=== PATIENT | male | born 1955 | race Caucasian/White ===

== ENCOUNTER 2024-02-02 15:30 | Emergency (ER) | payer OTHER ==
--- NOTE | 2024-02-02 15:51 | EDPHYS ---
Physician Documentation [facility] Name: Aman Gomes Age: 68 yrs Sex: Male : 1955 Arrival Date: 02/02/2024 Time: 15:30 Bed 12 Private MD: ED Physician Nino Claudio HPI: 02/01 16:09 This 68 yrs old Male presents to ER via Ambulatory with complaints of Medication Refill.rt 16:09 Patient with chronic hypertension presents to the ED requesting refill of his rt amlodipine. Has no symptoms currently. Has 1 pill left. States that he will establish care with a primary care this month. Denies other acute complaints, symptoms are mild in severity, no other aggravating or alleviating factors. Historical: - Allergies: 15:42 PENICILLINS; db - Home Meds: 15:42 amlodipine 10 mg tablet [Active]; Metformin Oral [Active]; Lisinopril Oral [Active]; db - PMHx: 15:42 Hypertensive disorder; Hypercholesterolemia; db - Immunization history:: Adult Immunizations unknown. - Infectious Disease History:: Denies. - Social history:: Smoking status: Patient denies any tobacco usage or history of. - Family history:: not pertinent. ROS: 16:09 Constitutional: Negative for fever, chills, and weight loss, Cardiovascular: Negative rt for chest pain, palpitations, and edema, Respiratory: Negative for shortness of breath, cough, wheezing, and pleuritic chest pain, Abdomen/GI: Negative for abdominal pain, nausea, vomiting, diarrhea, and constipation, MS/Extremity: Negative for injury and deformity, Skin: Negative for injury, rash, and discoloration, Neuro: Negative for headache, weakness, numbness, tingling, and seizure, Exam: 16:09 Constitutional: This is a well developed, well nourished patient who is awake, alert, rt and in no acute distress. Head/Face: Normocephalic, atraumatic. Chest/axilla: Normal chest wall appearance and motion. Nontender with no deformity. No lesions are appreciated. Cardiovascular: Regular rate and rhythm with a normal S1 and S2. No gallops, murmurs, or rubs. Normal PMI, no JVD. No pulse deficits. Respiratory: Lungs have equal breath sounds bilaterally, clear to auscultation and percussion. No rales, rhonchi or wheezes noted. No increased work of breathing, no retractions or nasal flaring. Abdomen/GI: Soft, non-tender, with normal bowel sounds. No distension or tympany. No guarding or rebound. No evidence of tenderness throughout. MS/ Extremity: Pulses equal, no cyanosis. Neurovascular intact. Full, normal range of motion. Neuro: Awake and alert, GCS 15, oriented to person, place, time, and situation. Cranial nerves II-XII grossly intact. Motor strength 5/5 in all extremities. Sensory grossly intact. Cerebellar exam normal. Normal gait. Vital Signs: 15:40 Pulse 99; Resp 16; Temp 98; Pulse Ox 100% ; Weight 106.59 kg; Height 6 ft. 4 in. ; Pain db 0/10; 16:00 BP 171 / 86; Pulse 95; Resp 16; Temp 97.9(TE); Pulse Ox 97% on R/A; tl4 15:40 Body Mass Index 28.60 (106.59 kg, 193.04 cm) db 15:40 Pain Scale: Adult db MDM: 15:43 Patient medically screened. rt 16:09 Data reviewed: vital signs, nurses notes. Test considered but Not performed: Other rt Details Patient has pre-existing asymptomatic hypertension, further workup is not indicated at this time.. Counseling: I had a detailed discussion with the patient and/or guardian regarding the historical points, exam findings, and any diagnostic results supporting the discharge/admit diagnosis, the presence of at least one elevated blood pressure reading (>120/80) during this emergency department visit, the need for outpatient follow up, to return to the emergency department if symptoms worsen or persist or if there are any questions or concerns that arise at home. Administered Medications: No medications were administered Disposition Summary: 02/02/24 15:50 Discharge Ordered Notes: Location: Home rt Problem: chronic rt Symptoms: are resolved rt Condition: Stable rt Diagnosis - Essential (primary) hypertension rt Followup: rt - With: Private Physician - When: 5 - 6 days - Reason: Discharge Instructions: - Discharge Summary Sheet rt - Hypertension, Adult rt Forms: - Medication Reconciliation Form rt - Antibiotic Education rt - Prescription Opioid Use rt - Patient Portal Instructions rt - Leadership Thank You Letter rt Prescriptions: - Norvasc 10 mg Oral Tablet - take 1 tablet ORAL route once daily; 30 tablet; Refills: 0, Product Selection rt Permitted Signatures: Bri Bolanos RN RN db Nino Claudio MD MD rt Corrections: (The following items were deleted from the chart) 15:45 15:42 Allergies: No Known Allergies; jses db
--- NOTE | 2024-02-02 15:51 | ER ---
Nurse's Notes [facility] Name: Aman Gomes Age: 68 yrs Sex: Male : 1955 Arrival Date: 02/02/2024 Time: 15:30 Bed 12 Private MD: Diagnosis: Essential (primary) hypertension Presentation: 02/01 15:40 Chief complaint: Patient states: ALMOST OUT OF AMLODIPINE MEDICATION. HAS ONE MORE db PILL. STATES NEEDS PCP REFERRAL AND MED REFILL. Coronavirus screen: Client denies travel out of the [place] in the last 14 days. At this time, the client does not indicate any symptoms associated with coronavirus-19. Ebola Screen: Patient negative for fever greater than or equal to 101.5 degrees Fahrenheit, and additional compatible Ebola Virus Disease symptoms Patient denies exposure to infectious person. Patient denies travel to an Ebola-affected area in the 21 days before illness onset. No symptoms or risks identified at this time. Initial Sepsis Screen: Does the patient meet any 2 criteria? No. Patient's initial sepsis screen is negative. Does the patient have a suspected source of infection? No. Patient's initial sepsis screen is negative. Risk Assessment: Do you want to hurt yourself or someone else? Patient reports no desire to harm self or others. Onset of symptoms was February 02, 2024. 15:40 Method Of Arrival: Ambulatory db 15:40 Acuity: JJ 5 db Triage Assessment: 15:42 General: Appears in no apparent distress. comfortable, Behavior is calm. Pain: Denies db pain. Historical: - Allergies: 15:42 PENICILLINS; db - Home Meds: 15:42 amlodipine 10 mg tablet [Active]; Metformin Oral [Active]; Lisinopril Oral [Active]; db - PMHx: 15:42 Hypertensive disorder; Hypercholesterolemia; db - Immunization history:: Adult Immunizations unknown. - Infectious Disease History:: Denies. - Social history:: Smoking status: Patient denies any tobacco usage or history of. - Family history:: not pertinent. Screenin:50 [facility] ED Fall Risk Assessment (Adult) History of falling in the last 3 months, tl4 including since admission No falls in past 3 months (0 pts) Confusion or Disorientation No (0 pts) Intoxicated or Sedated No (0 pts) Impaired Gait No (0 pts) Mobility Assist Device Used No (0 pt) Altered Elimination No (0 pt) Score/Fall Risk Level 0 - 2 = Low Risk Oriented to surroundings, Maintained a safe environment, Educated pt \T\ family on fall prevention, incl call for assistance when getting out of bed, Assessed \T\ reinforced patient's understanding of fall precautions. Abuse screen: Denies threats or abuse. Denies injuries from another. Nutritional screening: No deficits noted. Tuberculosis screening: No symptoms or risk factors identified. Assessment: 15:49 General: Appears in no apparent distress. Behavior is calm, cooperative. Pain: Denies tl4 pain. Neuro: Level of Consciousness is awake, alert, obeys commands, Oriented to person, place, time, situation, Moves all extremities. Full function Gait is steady, Speech is normal. Cardiovascular: Capillary refill < 3 seconds Patient's skin is warm and dry. Respiratory: Airway is patent Respiratory effort is even, unlabored, Respiratory pattern is regular, symmetrical, Breath sounds are clear bilaterally. GI: No deficits noted. No signs and/or symptoms were reported involving the gastrointestinal system. : No deficits noted. No signs and/or symptoms were reported regarding the genitourinary system. EENT: No deficits noted. No signs and/or symptoms were reported regarding the EENT system. Derm: No deficits noted. No signs and/or symptoms reported regarding the dermatologic system. Musculoskeletal: No deficits noted. No signs and/or symptoms reported regarding the musculoskeletal system. Vital Signs: 15:40 Pulse 99; Resp 16; Temp 98; Pulse Ox 100% ; Weight 106.59 kg; Height 6 ft. 4 in. ; Pain db 0/10; 16:00 BP 171 / 86; Pulse 95; Resp 16; Temp 97.9(TE); Pulse Ox 97% on R/A; tl4 15:40 Body Mass Index 28.60 (106.59 kg, 193.04 cm) db 15:40 Pain Scale: Adult db ED Course: 15:34 Patient arrived in ED. ra3 15:41 Nino Claudio MD is Attending Physician. rt 15:42 Triage completed. db 15:42 Arm band placed on Patient placed in an exam room. db 15:49 Dev Garibay, MARCELLUS is Primary Nurse. tl4 15:51 Patient has correct armband on for positive identification. Bed in low position. Call tl4 light in reach. Provided Education on: call vázquez. 15:51 No provider procedures requiring assistance completed. Patient did not have IV access tl4 during this emergency room visit. Administered Medications: No medications were administered Medication: 15:50 VIS not applicable for this client. tl4 Outcome: 15:50 Discharge ordered by MD. rt 16:00 Discharged to home ambulatory, tl4 16:00 Condition: stable 16:00 Discharge instructions given to patient, Instructed on discharge instructions, follow up and referral plans. medication usage, Demonstrated understanding of instructions, follow-up care, medications, Prescriptions given X 1, 16:01 Patient left the ED. tl4 Signatures: Bri Bolanos RN RN db Nino Claudio MD MD rt Dev Garibay RN RN tl4 Cherrie Hahn ra3 Corrections: (The following items were deleted from the chart) 15:45 15:42 Allergies: No Known Allergies; db db
[2024-02-02 16:22] VITALS: BP 171/86; TEMP 97.9; O2SAT 97
== END 2024-02-02 16:01 | disposition home or self-care (01) ==
LOC: ER 15:30
DX: I10 Essential (primary) hypertension (principal); Z76.0 Encounter for issue of repeat prescription
CPT/HCPCS: 99283

== ENCOUNTER 2024-03-06 14:41 | Emergency (ER) | payer OTHER ==
--- OUTSIDE RECORDS SUMMARY | 2024-03-06 14:44 | XMS REPORT | Continuity of Care Document ---
Author Name Unknown Address [address] [id number] [facility] thconnect Address [address] [place] [address] Care Team Providers Care Grades 7 And 8 Teacher Name Role Phone Pcp, Patient Does Not Have A Primary Care Physic janel Campaigns, Generic Provider Attending Clinician Unavailable ROSE RANDALL Attending Clinician Unavailable Rose Harper Attending Clinician [phone] Payers Payer Name Policy Type Policy Number Effective Date Expirati on Date Source Allergies, Adverse Reactions, Alerts Allergy Name Allergy Type Status Severity Reaction(s) Onset Date Inactive Date Treating Clinician Comments Source PENICILL IN DRUG INGREDI Active Rash 12-22 00:00: 00 [facility] Penicill in Propensi ty to adverse reaction s Active Rash 12-22 00:00: 00 [facility] Social History Social Habit Start Date Stop Date Quantity Comments Source Sexual orientation U [facility] Sex assigned at 1955 00:00:00 1955 00:00:00 [facility] Smoking Status Start Date Stop Date Source Tobacco smoking consumption unknown [facility] Medications Ordered Medication Name Filled Medication Name Start Date Stop Date Current Medication? Ordering Clinician Indication Dosage Frequency Signature (SIG) Comments Components Source lisinopriL 40 mg tablet 12-22 00:00: 00 01-22 04:59 :00 Yes [id number] 40mg Take 1 tablet by mouth in the morning for 30 days. [facility] amLODIPine 10 mg tablet 12-22 00:00: 00 01-22 04:59 :00 Yes [id number] 10mg Take 1 tablet by mouth in the morning for 30 days. [facility] metFORMIN 1,000 mg tablet 12-22 00:00: 00 01-22 04:59 :00 Yes [id number] 1000mg Take 1 tablet by mouth in the morning and 1 tablet in the evening. Do all this for 30 days. [facility] Vital Signs Vital Name Observation Time Observation Value Comments Vicente cole Systolic blood pressure 2023-12-23 18:30:00 148 mm[Hg] [facility] Diastolic blood pressure 2023-12-23 18:30:00 97 mm[Hg] [facility] Heart rate 2023-12-23 18:30:00 79 /min [facility] Respiratory rate 2023-12-23 18:30:00 26 /min [facility] Oxygen saturation in Arterial blood by Pulse oximetry 2023-12-23 18:30:00 100 /min [facility] Body temperature 2023-12-23 17:30:00 37 Ashley [facility] Body height 2023-12-23 17:30:[address] [facility] Body weight 2023-12-23 17:30:[address] [facility] BMI 2023-12-23 17:30:00 28.00 kg/m2 [facility] Encounters Start Date/Time End Date/Time Encounter Type Admission Type Attending Clinicians Care Facility Care Department Encounter ID Source 2023-12-31 00:00:00 2023-12-31 12:00:01 Letter (Out) Campaigns, Generic Provider [facility] [id number] [facility] 2023-12-23 12:37:00 2023-12-23 13:44:00 Emergency X ROSE RANDALL [facility] ERT [id number] [facility] 2023-12-23 12:37:00 2023-12-23 13:44:00 Emergency Rose Randall [facility] [id number] [facility] Notes Date/Time Note Provider Source 2023-12-23 13:43:44 Patient dc home follow up with clinic. Verbalized understanding. Mynor Vale RN [facility] 2023-12-23 13:00:00 No complaints or pain just wants med refill. [facility] 2023-12-23 12:30:00 Patient came in for medication refill, states he has no PCP. No other complaints. T [facility]
--- NOTE | 2024-03-06 14:48 | EDPHYS ---
Physician Documentation [facility] Name: Aman Gomes Age: 68 yrs Sex: Male : 1955 Arrival Date: 03/06/2024 Time: 14:41 Bed IW1 Private MD: ED Physician Nino Claudio HPI: 03/06 14:51 This 68 yrs old Male presents to ER via Ambulatory with complaints of dr5 Medication Refill. 14:51 The patient presents to the emergency department requesting refill(s) for: Norvasc, dr5 Lisinopril / Metformin. Pt denies any symptoms. Pt states he is still trying to get a PCP to manage his DM and HTN.. Historical: - Allergies: 14:49 PENICILLINS; iw - PMHx: 14:49 Hypercholesterolemia; Hypertensive disorder; iw - Immunization history:: Adult Immunizations up to date. - Infectious Disease History:: Denies. - Social history:: Smoking status: Patient denies any tobacco usage or history of. ROS: 14:51 Constitutional: as per hpi dr5 Exam: 14:51 Constitutional: This is a well developed, well nourished patient who is awake, alert, dr5 and in no acute distress. Head/Face: Normocephalic, atraumatic. Eyes: Pupils equal round and reactive to light, extra-ocular motions intact. Lids and lashes normal. Conjunctiva and sclera are non-icteric and not injected. Cornea within normal limits. Periorbital areas with no swelling, redness, or edema. Chest/axilla: Normal chest wall appearance and motion. Nontender with no deformity. No lesions are appreciated. Cardiovascular: Regular rate and rhythm with a normal S1 and S2. Normal PMI, no JVD. No pulse deficits. Respiratory: Lungs have equal breath sounds bilaterally, clear to auscultation. No rales, rhonchi or wheezes noted. No increased work of breathing, no retractions or nasal flaring. Abdomen/GI: Soft, non-tender, non-distended Skin: Warm, dry with normal turgor. Normal color with no rashes, no lesions, and no evidence of cellulitis. MS/ Extremity: Pulses equal, no cyanosis. Neurovascular intact. Full, normal range of motion. Vital Signs: 14:46 BP 148 / 93; Pulse 104; Resp 18; Temp 98(O); Pulse Ox 98% on R/A; Weight 101.15 kg; iw Height 6 ft. 4 in. ; Pain 0/10; 14:46 Body Mass Index 27.14 (101.15 kg, 193.04 cm) iw 14:46 Pain Scale: Adult iw MDM: 14:47 Patient medically screened. dr5 14:51 Data reviewed: vital signs, nurses notes. Care significantly affected by the following dr5 chronic conditions: Diabetes, Hypertension. Care significantly affected by the following Social Determinants of Health: Poor access to healthcare and/or lack of insurance, Poor access to transportation. Counseling: I had a detailed discussion with the patient and/or guardian regarding the historical points, exam findings, and any diagnostic results supporting the discharge/admit diagnosis, the presence of at least one elevated blood pressure reading (>120/80) during this emergency department visit, the need for outpatient follow up, for definitive care, a family practitioner. ED course: Refilled HTN and DM medication for a month. Recommended that he find a PCP to manage his chronic issues and blood work. Pt reports he started riding his bike for exercise to decrease his blood pressure. No symptoms at the time of discharge. BP stable.. Administered Medications: No medications were administered Disposition: 15:37 Co-signature as Attending Physician, Nino Claudio MD I reviewed the patient's care rt provided by the Advanced Practice Provider and agree with the diagnosis and treatment plan. Disposition Summary: 03/06/24 14:47 Discharge Ordered Notes: Location: Home dr5 Condition: Stable dr5 Diagnosis - Essential (primary) hypertension dr5 Followup: dr5 - With: Emergency Department - When: As needed - Reason: Worsening of condition Followup: dr5 - With: Private Physician - When: 2 - 3 days - Reason: Recheck today's complaints, Continuance of care, Re-evaluation by your physician Discharge Instructions: - Discharge Summary Sheet dr5 - Hypertension, Adult dr5 Forms: - Medication Reconciliation Form dr5 - Patient Portal Instructions dr5 - Leadership Thank You Letter dr5 Prescriptions: - Norvasc 10 mg Oral tablet - take 1 tablet ORAL route once daily for 30 days; 30 tablet; Refills: 0, Product dr5 Selection Permitted - Lisinopril 20 mg Oral tablet - take 2 tablet ORAL route once daily for 30 days; 60 tablet; Refills: 0, Product dr5 Selection Permitted - Metformin 1,000 mg Oral tablet - take 1 tablet ORAL route every 12 hours for 30 days with morning and evening dr5 meals; 60 tablet; Refills: 0, Product Selection Permitted Signatures: Cierra Augustin RN RN iw Nino Claudio MD MD rt Luis Fernando Hutchins, CROP SUPERVISOR-C CROP SUPERVISOR-Cdr5
--- NOTE | 2024-03-06 14:55 | ER ---
Nurse's Notes [facility] Name: Aman Gomes Age: 68 yrs Sex: Male : 1955 Arrival Date: 03/06/2024 Time: 14:41 Bed IW1 Private MD: Diagnosis: Essential (primary) hypertension Presentation: 03/06 14:46 Chief complaint: Patient states: needs refill on metformin and BP meds. Coronavirus iw screen: At this time, the client does not indicate any symptoms associated with coronavirus-19. Ebola Screen: No symptoms or risks identified at this time. Initial Sepsis Screen: Does the patient meet any 2 criteria? No. Patient's initial sepsis screen is negative. Does the patient have a suspected source of infection? No. Patient's initial sepsis screen is negative. Risk Assessment: Do you want to hurt yourself or someone else? Patient reports no desire to harm self or others. Onset of symptoms was March 06, 2024. 14:46 Method Of Arrival: Ambulatory iw 14:46 Acuity: JJ 4 iw Historical: - Allergies: 14:49 PENICILLINS; iw - PMHx: 14:49 Hypercholesterolemia; Hypertensive disorder; iw - Immunization history:: Adult Immunizations up to date. - Infectious Disease History:: Denies. - Social history:: Smoking status: Patient denies any tobacco usage or history of. Screenin:53 [facility] ED Fall Risk Assessment (Adult) History of falling in the last 3 months, iw including since admission No falls in past 3 months (0 pts) Confusion or Disorientation No (0 pts) Intoxicated or Sedated No (0 pts) Impaired Gait No (0 pts) Mobility Assist Device Used No (0 pt) Altered Elimination No (0 pt) Score/Fall Risk Level 0 - 2 = Low Risk Oriented to surroundings. Abuse screen: Denies threats or abuse. Nutritional screening: No deficits noted. Tuberculosis screening: No symptoms or risk factors identified. Assessment: 14:53 General: Appears in no apparent distress. Behavior is calm, cooperative. Pain: Denies iw pain. Neuro: Level of Consciousness is awake, alert, obeys commands, Oriented to person, place, time, situation, Moves all extremities. Full function. Cardiovascular: Denies chest pain, lightheadedness, palpitations, shortness of breath. Respiratory: Respiratory effort is even, unlabored, Respiratory pattern is regular, symmetrical, Denies shortness of breath labored breathing. GI: Abdomen is non-distended. Derm: Skin is normal. Musculoskeletal: Range of motion: intact in all extremities. Vital Signs: 14:46 BP 148 / 93; Pulse 104; Resp 18; Temp 98(O); Pulse Ox 98% on R/A; Weight 101.15 kg; iw Height 6 ft. 4 in. ; Pain 0/10; 14:46 Body Mass Index 27.14 (101.15 kg, 193.04 cm) iw 14:46 Pain Scale: Adult iw ED Course: 14:43 Patient arrived in ED. mr 14:44 Luis Fernando Hutchins [facility]C [facility] 14:44 Nino Claudio MD is Attending Physician. dr5 14:49 Triage completed. iw 14:51 Arm band placed on. iw 14:53 Cierra Augustin, RN is Primary Nurse. iw 14:54 Patient has correct armband on for positive identification. Provided Education on: need iw for PCP, return to ER for chest pain, palpitations, any other needs . 14:54 No provider procedures requiring assistance completed. Patient did not have IV access iw during this emergency room visit. Administered Medications: No medications were administered Medication: 14:53 VIS not applicable for this client. iw Outcome: 14:47 Discharge ordered by MD. dr5 14:54 Discharged to home ambulatory, iw 14:54 Condition: good 14:54 Discharge instructions given to patient, Instructed on discharge instructions, follow up and referral plans. medication usage, Demonstrated understanding of instructions, follow-up care, medications, Prescriptions given X 3, 14:55 Patient left the ED. iw Signatures: Carlee Cooper, Reg Reg mr Cierra Augustin, RN RN iw Luis Fernando Hutchins FNP-C MARINE OILER-Cdr5 Corrections: (The following items were deleted from the chart) 14:51 14:46 BP 148 / 93; Pulse 104bpm; Resp 18bpm; Pulse Ox 98% RA; Temp 98F Oral; iw iw
[2024-03-06 14:59] VITALS: BP 148/93; TEMP 98; O2SAT 98
== END 2024-03-06 14:55 | disposition home or self-care (01) ==
LOC: ER 14:41
DX: I10 Essential (primary) hypertension (principal)
CPT/HCPCS: 99283

== ENCOUNTER 2024-04-08 10:03 | Emergency (ER) | payer OTHER ==
--- OUTSIDE RECORDS SUMMARY | 2024-04-08 10:06 | XMS REPORT | Continuity of Care Document ---
Author Name Unknown Address [address] [facility] [address] [id number] [facility] thconnect Address [address] [facility] [address] [place] [address] Care Team Providers Care Video Technician Name Role Phone Pcp, Patient Does Not Have A Primary Care Physic janel Campaigns, Generic Provider Attending Clinician Unavailable ROSE RANDALL Attending Clinician Unavailable Rose Harper Attending Clinician [phone] Payers Payer Name Policy Type Policy Number Effective Date Expirati on Date Source Allergies, Adverse Reactions, Alerts Allergy Name Allergy Type Status Severity Reaction(s) Onset Date Inactive Date Treating Clinician Comments Source PENICILL IN DRUG INGREDI Active Rash 12-22 00:00: 00 [facility] Penicill in Propensi ty to adverse reaction s Active Rash 12-22 00:00: 00 [facility] Social History Social Habit Start Date Stop Date Quantity Comments Source Sexual orientation U [facility] Sex assigned at 1955 00:00:00 1955 00:00:00 [facility] Smoking Status Start Date Stop Date Source Tobacco smoking consumption unknown [facility] Medications Ordered Medication Name Filled Medication Name Start Date Stop Date Current Medication? Ordering Clinician Indication Dosage Frequency Signature (SIG) Comments Components Source lisinopriL 40 mg tablet 12-22 00:00: 00 01-22 04:59 :00 No [id number] 40mg Take 1 tablet by mouth in the morning for 30 days. [facility] amLODIPine 10 mg tablet 12-22 00:00: 00 01-22 04:59 :00 No [id number] 10mg Take 1 tablet by mouth in the morning for 30 days. [facility] metFORMIN 1,000 mg tablet 12-22 00:00: 00 01-22 04:59 :00 No [id number] 1000mg Take 1 tablet by mouth in the morning and 1 tablet in the evening. Do all this for 30 days. [facility] Vital Signs Vital Name Observation Time Observation Value Comments Vicente cole Systolic blood pressure 2023-12-23 18:30:00 148 mm[Hg] [facility] Diastolic blood pressure 2023-12-23 18:30:00 97 mm[Hg] [facility] Heart rate 2023-12-23 18:30:00 79 /min [facility] Respiratory rate 2023-12-23 18:30:00 26 /min [facility] Oxygen saturation in Arterial blood by Pulse oximetry 2023-12-23 18:30:00 100 /min [facility] Body temperature 2023-12-23 17:30:00 37 Ashley [facility] Body height 2023-12-23 17:30:[address] [facility] Body weight 2023-12-23 17:30:[address] [facility] BMI 2023-12-23 17:30:00 28.00 kg/m2 [facility] Encounters Start Date/Time End Date/Time Encounter Type Admission Type Attending Clinicians Care Facility Care Department Encounter ID Source 2023-12-31 00:00:00 2023-12-31 12:00:01 Letter (Out) Campaigns, Generic Provider [facility] [id number] [facility] 2023-12-23 12:37:00 2023-12-23 13:44:00 Emergency X ROSE RANDALL [facility] ERT [id number] [facility] 2023-12-23 12:37:00 2023-12-23 13:44:00 Emergency Rose Randall [facility] [id number] [facility] Notes Date/Time Note Provider Source 2023-12-23 13:43:44 Patient dc home follow up with clinic. Verbalized understanding. Mynor Vale RN [facility] 2023-12-23 13:00:00 No complaints or pain just wants med refill. [facility] 2023-12-23 12:30:00 Patient came in for medication refill, states he has no PCP. No other complaints. T [facility]
--- NOTE | 2024-04-08 10:57 | ER ---
Nurse's Notes [facility] Name: Aman Gomes Age: 68 yrs Sex: Male : 1955 Arrival Date: 04/08/2024 Time: 10:03 Bed 12 Private MD: Diagnosis: Essential (primary) hypertension;Encounter for medication refill Presentation: 04/08 10:22 Chief complaint: Patient states: Wants prescriptions for amlodipine, lisinopril, and ll1 metformin. Coronavirus screen: Client denies travel out of the [place] in the last 14 days. At this time, the client does not indicate any symptoms associated with coronavirus-19. Ebola Screen: Patient denies travel to an Ebola-affected area in the 21 days before illness onset. Initial Sepsis Screen: Does the patient meet any 2 criteria? No. Patient's initial sepsis screen is negative. Does the patient have a suspected source of infection? No. Patient's initial sepsis screen is negative. Risk Assessment: Do you want to hurt yourself or someone else? Patient reports no desire to harm self or others. Onset of symptoms was April 08, 2024. 10:22 Method Of Arrival: Ambulatory ll1 10:22 Acuity: JJ 5 ll1 Triage Assessment: 10:30 General: Appears in no apparent distress. Behavior is calm, cooperative, appropriate ll1 for age, needs prescriptions for refills of his normal meds. Pain: Denies pain. Neuro: No deficits noted. Historical: - Allergies: 10:21 PENICILLINS; ll1 - PMHx: 10:21 Hypercholesterolemia; Hypertensive disorder; ll1 - PSHx: 10:21 hernia repair (Hypertensive disorder); ll1 - Immunization history:: Adult Immunizations up to date. - Infectious Disease History:: Denies. - Social history:: Smoking status: Patient denies any tobacco usage or history of. - Family history:: not pertinent. - Hospitalizations: : No recent hospitalization is reported. Screenin:31 [facility] ED Fall Risk Assessment (Adult) History of falling in the last 3 months, ll1 including since admission No falls in past 3 months (0 pts) Confusion or Disorientation No (0 pts) Intoxicated or Sedated No (0 pts) Impaired Gait No (0 pts) Mobility Assist Device Used No (0 pt) Altered Elimination No (0 pt) Score/Fall Risk Level 0 - 2 = Low Risk Maintained a safe environment, Hourly rounding (assess needs \T\ fall precautionary measures) done. Abuse screen: Denies threats or abuse. Nutritional screening: No deficits noted. Tuberculosis screening: No symptoms or risk factors identified. Assessment: 11:02 General: Appears in no apparent distress. comfortable, Behavior is calm, cooperative. ss Pain: Denies pain. Neuro: Level of Consciousness is awake, alert, obeys commands, Oriented to person, place, time, situation. Respiratory: Airway is patent Respiratory effort is even, unlabored, Respiratory pattern is regular, symmetrical. Derm: Skin is pink, warm \T\ dry. normal. Vital Signs: 10:22 BP 140 / 85; Pulse 58; Resp 16; Pulse Ox 99% ; Pain 0/10; ll1 10:22 Pain Scale: Adult ll1 ED Course: 10:05 Patient arrived in ED. mr 10:07 Dakota Sargent MD is Attending Physician. rn 10:23 Triage completed. ll1 10:23 Arm band placed on Patient placed in an exam room, on a stretcher. ll1 10:30 Alea Young, MARCELLUS is Primary Nurse. ll1 10:31 Patient has correct armband on for positive identification. Provided Education on: ER ll1 procedures and process. Cardiac monitoring not applicable on this patient. 10:32 No provider procedures requiring assistance completed. Patient did not have IV access ll1 during this emergency room visit. Administered Medications: No medications were administered Medication: 10:31 VIS not applicable for this client. ll1 Outcome: 10:32 Discharged to home ambulatory, ll1 10:32 Condition: stable 10:32 Discharge instructions given to patient, Instructed on discharge instructions, follow up and referral plans. medication usage, Demonstrated understanding of instructions, follow-up care, medications, Prescriptions given X 3, 10:56 Discharge ordered by . rn 11:02 Patient left the ED. ss Signatures: Carlee Cooper, Reg Reg mr Dakota Sargent MD MD rn Blanchard, Shelby, RN RN ss Alea Young RN RN ll1
--- NOTE | 2024-04-08 10:57 | EDPHYS ---
Physician Documentation [facility] Name: Aman Gomes Age: 68 yrs Sex: Male : 1955 Arrival Date: 04/08/2024 Time: 10:03 Bed 12 Private MD: ED Physician Dakota Sargent HPI: 04/08 10:55 This 68 yrs old Male presents to ER via Ambulatory with complaints of Medication Refill.rn 10:55 The patient has experienced similar episodes in the past. 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 Has not been able to get in with the PCP. Otherwise denies any acute symptoms. Historical: - Allergies: 10:21 PENICILLINS; ll1 - PMHx: 10:21 Hypercholesterolemia; Hypertensive disorder; ll1 - PSHx: 10:21 hernia repair (Hypertensive disorder); ll1 - Immunization history:: Adult Immunizations up to date. - Infectious Disease History:: Denies. - Social history:: Smoking status: Patient denies any tobacco usage or history of. - Family history:: not pertinent. - Hospitalizations: : No recent hospitalization is reported. ROS: 10:55 Constitutional: Negative for fever, chills, and weight loss, Cardiovascular: Negative rn for chest pain, palpitations, and edema, Respiratory: Negative for shortness of breath, cough, wheezing, and pleuritic chest pain, Abdomen/GI: Negative for abdominal pain, nausea, vomiting, diarrhea, and constipation, MS/Extremity: Negative for injury and deformity, Neuro: Negative for headache, weakness, numbness, tingling, and seizure, Exam: 10:55 Constitutional: This is a well developed, well nourished patient who is awake, alert, rn and in no acute distress. Vital Signs: 10:22 BP 140 / 85; Pulse 58; Resp 16; Pulse Ox 99% ; Pain 0/10; ll1 10:22 Pain Scale: Adult ll1 MDM: 10:07 Medical Screening Exam initiated rn 10:55 Data reviewed: vital signs, nurses notes, and as a result, I will discharge patient. rn Counseling: I had a detailed discussion with the patient and/or guardian regarding the historical points, exam findings, and any diagnostic results supporting the discharge/admit diagnosis, the need for outpatient follow up, to return to the emergency department if symptoms worsen or persist or if there are any questions or concerns that arise at home. Special discussion: I discussed with the patient/guardian in detail that at this point there is no indication for admission to the hospital. It is understood, however, that if the symptoms persist or worsen the patient needs to return immediately for re-evaluation. Based on the history and exam findings, there is no indication for further emergent testing or inpatient evaluation. I discussed with the patient/guardian the need to see the primary care provider for further evaluation of the symptoms. Administered Medications: No medications were administered Disposition Summary: 04/08/24 10:56 Discharge Ordered Notes: Location: Home rn Problem: chronic rn Symptoms: are unchanged rn Condition: Stable rn Diagnosis - Essential (primary) hypertension rn - Encounter for medication refill rn Followup: rn - With: Private Physician - When: As needed - Reason: Recheck today's complaints, Re-evaluation by your physician Discharge Instructions: - Discharge Summary Sheet rn - Hypertension, Adult rn - Managing Your Hypertension rn Forms: - Medication Reconciliation Form rn - Antibiotic discharge rn - Prescription Opioid Use rn - Patient Portal Instructions rn - Leadership Thank You Letter rn - Work release form ll1 Prescriptions: - amlodipine 10 mg Oral tablet - take 1 tablet ORAL route daily; 60 tablet; Refills: 0, Product Selection rn Permitted - Lisinopril 20 mg Oral tablet - take 2 tablet ORAL route once daily; 120 tablet; Refills: 0, Product Selection rn Permitted - Metformin 1,000 mg Oral tablet - take 1 tablet ORAL route every 12 hours with morning and evening meals; 120 rn tablet; Refills: 0, Product Selection Permitted Signatures: Dakota Sargent MD MD rn Lewis, Lynsay, RN RN ll1
[2024-04-08 11:07] VITALS: BP 140/85; O2SAT 99
== END 2024-04-08 11:02 | disposition home or self-care (01) ==
LOC: ER 10:03
DX: Z76.0 Encounter for issue of repeat prescription (principal); I10 Essential (primary) hypertension
CPT/HCPCS: 99283

== ENCOUNTER 2024-04-25 09:32 | Emergency (ER) | payer OTHER ==
--- OUTSIDE RECORDS SUMMARY | 2024-04-25 09:34 | XMS REPORT | Continuity of Care Document ---
Author Name Unknown Address [address] [facility] [address] [id number] [facility] thconnect Address [address] [facility] [address] [place] [address] Care Team Providers Care Journeyman Wireman Name Role Phone Pcp, Patient Does Not Have A Primary Care Physic janel Campaigns, Generic Provider Attending Clinician Unavailable ROSE RANDALL Attending Clinician Unavailable Rose Harper Attending Clinician Payers Payer Name Policy Type Policy Number Effective Date Expirati on Date Source Allergies, Adverse Reactions, Alerts Allergy Name Allergy Type Status Severity Reaction(s) Onset Date Inactive Date Treating Clinician Comments Source PENICILL IN DRUG INGREDI Active Rash 12-22 00:00: 00 [facility] Penicill in Propensi ty to adverse reaction s Active Rash 12-22 00:00: 00 [facility] Social History Social Habit Start Date Stop Date Quantity Comments Source Sexual orientation U [facility] Sex assigned at 1955 00:00:00 1955 00:00:00 [facility] Smoking Status Start Date Stop Date Source Tobacco smoking consumption unknown [facility] Medications Ordered Medication Name Filled Medication Name Start Date Stop Date Current Medication? Ordering Clinician Indication Dosage Frequency Signature (SIG) Comments Components Source lisinopriL 40 mg tablet 12-22 00:00: 00 01-22 04:59 :00 No [id number] 40mg Take 1 tablet by mouth in the morning for 30 days. [facility] amLODIPine 10 mg tablet 12-22 00:00: 00 01-22 04:59 :00 No [id number] 10mg Take 1 tablet by mouth in the morning for 30 days. [facility] metFORMIN 1,000 mg tablet 12-22 00:00: 00 01-22 04:59 :00 No [id number] 1000mg Take 1 tablet by mouth in the morning and 1 tablet in the evening. Do all this for 30 days. [facility] Vital Signs Vital Name Observation Time Observation Value Comments Vicente cole Systolic blood pressure 2023-12-23 18:30:00 148 mm[Hg] [facility] Diastolic blood pressure 2023-12-23 18:30:00 97 mm[Hg] [facility] Heart rate 2023-12-23 18:30:00 79 /min [facility] Respiratory rate 2023-12-23 18:30:00 26 /min [facility] Oxygen saturation in Arterial blood by Pulse oximetry 2023-12-23 18:30:00 100 /min [facility] Body temperature 2023-12-23 17:30:00 37 Ashley [facility] Body height 2023-12-23 17:30:00 193 cm [facility] Body weight 2023-12-23 17:30:00 104.327 kg [facility] BMI 2023-12-23 17:30:00 28.00 kg/m2 [facility] Encounters Start Date/Time End Date/Time Encounter Type Admission Type Attending Clinicians Care Facility Care Department Encounter ID Source 2023-12-31 00:00:00 2023-12-31 12:00:01 Letter (Out) Campaigns, Generic Provider [facility] [id number] [facility] 2023-12-23 12:37:00 2023-12-23 13:44:00 Emergency X ROSE RANDALL [facility] ERT [id number] [facility] 2023-12-23 12:37:00 2023-12-23 13:44:00 Emergency Rose Randall [facility] [id number] [id number] [facility] Notes Date/Time Note Provider Source 2023-12-23 13:43:44 Patient dc home follow up with clinic. Verbalized understanding. Mynor Vale RN [facility] 2023-12-23 13:00:00 No complaints or pain just wants med refill. [facility] 2023-12-23 12:30:00 Patient came in for medication refill, states he has no PCP. No other complaints. T [facility]
[2024-04-25 11:14] LABS: SARS-CoV-2 Antigen CONTROL BLUE LINE VIS/BG OK; SARS-CoV-2 Antigen Rapid Res Negative (Negative)
[2024-04-25] MEDS ORDERED: NA CHLORIDE 0.9% 500 ML ONE (11:34)
[2024-04-25 11:51] LABS: Absolute Basophils 0.1 K/uL (0-0.5); Absolute Eosinophils 0.2 K/uL (0-0.5); Absolute Lymphocytes (CBC) 1.4 K/uL (0.7-4.9); Absolute Monocytes 0.9 K/uL (0.1-1.3); Absolute Neutrophil 5.2 K/uL (1.8-8.0); Basophils % 0.9 % (0-1.3); Eosinophils % 2.9 % (0-4.4); Hematocrit 37.1 % (39.6-49.0); Hemoglobin 13.1 g/dL (13.6-17.9); Lymphocytes % 17.7 % (15.3-44.8); MCH 31.8 pg (27.0-35.0); MCHC 35.2 g/dL (32.0-36.0); MCV 90.3 fL (80-100); MPV 8.3 fL (7.6-11.3); Neutrophils % 67.5 % (41.7-73.7); Platelets 239 thou/uL (152-406); RBC Red Blood Cell Count 4.11 M/uL (4.33-5.43); Red Cell Distribution Width 12.6 % (12.1-15.2)
[2024-04-25 12:05] LABS: Anion Gap 10.2 mEq/L (5.0-15.0); Potassium 4.2 mEq/L (3.5-5.1)
--- NOTE | 2024-04-25 12:54 | RAD REPORT ---
EXAM: Soft Tissue Neck W/Contr INDICATION: R anterior neck swelling Sagittal and coronal reformations were generated. This exam was performed according to our department al dose-optimization program, which includes automated exposure control, adjustment of the mA and/or kV according to patient size and/or use of iterative reconstruction technique. IV contrast was administered. COMPARISON: None. FINDINGS: Mucosal spaces: Nasopharynx, oropharynx, oral cavity, larynx and hypopharynx are normal. No suspiciou s masses are identified. Epiglottis is normal in configuration. True vocal cords cords are normally situated. Piriform sinuses are well-aerated. Lymph Nodes: In the right anterior submandibular location the site of palpable concern 19 mm necrotic lymph node is suspected. No additional areas of abnormal lymphadenopathy seen. Salivary Glands: Unremarkable. Thyroid Gland: Normal Included Intracranial Structures: Grossly unremarkable. Included Orbits: Normal Paranasal Sinuses: Predominantly clear Tympanomastoid Cavities: Normal Vascular Structures: Normal Osseous Structures: No acute osseous abnormality. Included Lung Apices: Normal IMPRESSION: In the right anterior submandibular location, 19 mm necrotic lymph node is suspected. This correlates with palpable abnormality. Recommend nonemergent follow-up ultrasound guided FNA.
--- NOTE | 2024-04-25 13:00 | EDPHYS ---
Physician Documentation [facility] Name: Aman Gomes Age: 68 yrs Sex: Male : 1955 Arrival Date: 04/25/2024 Time: 09:32 Bed 12 Private MD: ED Physician Asael Camargo HPI: 04/25 10:59 This 68 yrs old Male presents to ER via Ambulatory with complaints of Sore ec2 Throat - with lump x2wks. 10:59 Patient arrives today for neck swelling to the right anterior neck. Reports been unwell ec2 for several days and progressively worsening. Patient reports has been having a sore throat as well. No vomiting, no diarrhea. No issues with p.o. intake. Reports odynophagia however no issues with secretions.. Historical: - Allergies: 10:01 PENICILLINS; hb - PMHx: 10:01 Hypercholesterolemia; Hypertensive disorder; hb - PSHx: 10:01 hernia repair (en); hb - Immunization history:: Adult Immunizations up to date. - Infectious Disease History:: Denies. - Social history:: Smoking status: Patient denies any tobacco usage or history of. ROS: 10:59 Constitutional: as per hpi ec2 Exam: 10:59 Constitutional: GEN: NAD Head: atraumatic Eyes: EOMI Ears: External ears are normal. ec2 Mouth: No trismus, no issues with secretions, posterior pharyngeal erythema without exudate appreciated. Neck: Right anterior cervical lymphadenopathy noted. CV: regular rate LUNGS: no respiratory distress ABD: non-distended SKIN: no evidence of rashes MSK: no evidence of trauma Vital Signs: 10:00 BP 146 / 102; Pulse 107; Resp 16; Temp 98.4; Pulse Ox 100% on R/A; Weight 104.33 kg; hb Height 6 ft. 4 in. ; Pain 2/10; 10:00 Body Mass Index 28.00 (104.33 kg, 193.04 cm) hb 10:00 Pain Scale: Adult hb MDM: 10:06 Medical Screening Exam initiated ec2 10:59 Data reviewed: vital signs, nurses notes. ED course: Patient arrives today for sore ec2 throat as well as right anterior neck swelling. Examination revealing for HEENT findings as above. Will obtain viral swab and strep swab. . 11:32 ED course: Negative swabs, will obtain lab work and further imaging of the neck to ec2 evaluate for mass. 12:59 ED course: CT imaging shows concern for necrotic lymph node. I will start the patient ec2 on antibiotics, prescribed pain medications have a follow-up with primary care for repeat evaluation and possible ultrasonography. Return precautions given.. 04/25 10:10 Order name: Influenza Screen (a \T\ B); Complete Time: 11:32 ec2 04/25 10:10 Order name: SARS RAPID; Complete Time: 11:32 ec2 04/25 10:10 Order name: Strep ec2 04/25 11:18 Order name: Throat Culture EDMS 04/25 11:32 Order name: CBC with Diff; Complete Time: 12:31 ec2 04/25 11:32 Order name: BMP; Complete Time: 12:31 ec2 04/25 11:32 Order name: Soft Tissue Neck W/Contr CT; Complete Time: 12:59 ec2 Administered Medications: 11:46 Drug: NS 0.9% IV 500 ml 500 ml IV at 1 bolus once; to be given as a bolus over 30 hb minutes Volume: 500 ml; Route: IV; Rate: 1 bolus; Site: right antecubital; 12:15 Follow up: Response: No adverse reaction; IV Status: Completed infusion; IV Intake: hb 500ml Disposition Summary: 04/25/24 13:00 Discharge Ordered Notes: Location: Home ec2 Condition: Stable ec2 Diagnosis - Necrotic Lymph Node ec2 Followup: ec2 - With: Whit Ingram MD - When: - Reason: Recheck today's complaints Discharge Instructions: - Discharge Summary Sheet ec2 - Lymphangitis, Adult ec2 Forms: - Medication Reconciliation Form ec2 - Antibiotic Education ec2 - Prescription Opioid Use ec2 - Patient Portal Instructions ec2 - Leadership Thank You Letter ec2 Prescriptions: - acetaminophen-codeine 300-30 mg Oral tablet - take 1 tablet ORAL route 4 times per day; 16 tablet; Refills: 0, Product ec2 Selection Permitted - Bactrim DS 800-160 mg Oral Tablet - take 1 tablet ORAL route every 12 hours for 7 days; 14 tablet; Refills: 0, ec2 Product Selection Permitted Signatures: Dispatcher [employer] Bekah May RN RN Asael Camargo MD MD ec2 Corrections: (The following items were deleted from the chart) : 11:32 CBC+H.LAB.BRZ ordered. EDMS EDMS : 11:32 BASIC METABOLIC PANEL+C.LAB.BRZ ordered. EDMS EDMS
--- NOTE | 2024-04-25 13:00 | ER ---
Nurse's Notes [facility] Name: Aman Gomes Age: 68 yrs Sex: Male : 1955 Arrival Date: 04/25/2024 Time: 09:32 Bed 12 Private MD: Diagnosis: Necrotic Lymph Node Presentation: 04/25 10:00 Chief complaint: Lump on neck x 1 week, cough and congestion x 3-4 days. Coronavirus hb screen: At this time, the client does not indicate any symptoms associated with coronavirus-19. Ebola Screen: No symptoms or risks identified at this time. Initial Sepsis Screen: Does the patient meet any 2 criteria? No. Patient's initial sepsis screen is negative. Does the patient have a suspected source of infection? No. Patient's initial sepsis screen is negative. Risk Assessment: Do you want to hurt yourself or someone else? Patient reports no desire to harm self or others. Onset of symptoms was April 19, 2024. 10:00 Method Of Arrival: Ambulatory hb 10:00 Acuity: JJ 4 hb Historical: - Allergies: 10:01 PENICILLINS; hb - PMHx: 10:01 Hypercholesterolemia; Hypertensive disorder; hb - PSHx: 10:01 hernia repair (en); hb - Immunization history:: Adult Immunizations up to date. - Infectious Disease History:: Denies. - Social history:: Smoking status: Patient denies any tobacco usage or history of. Screenin:21 [facility] ED Fall Risk Assessment (Adult) History of falling in the last 3 months, hb including since admission No falls in past 3 months (0 pts) Confusion or Disorientation No (0 pts) Intoxicated or Sedated No (0 pts) Impaired Gait No (0 pts) Mobility Assist Device Used No (0 pt) Altered Elimination No (0 pt) Score/Fall Risk Level 0 - 2 = Low Risk Oriented to surroundings, Maintained a safe environment, Educated pt \T\ family on fall prevention, incl call for assistance when getting out of bed. Abuse screen: Denies threats or abuse. Denies injuries from another. Nutritional screening: No deficits noted. Tuberculosis screening: No symptoms or risk factors identified. Assessment: 11:20 General: Appears in no apparent distress. Behavior is calm, cooperative. Pain: Pain hb currently is 2 out of 10 on a pain scale. Neuro: GCS 15. Cardiovascular: Patient's skin is warm and dry. Respiratory: Respiratory effort is even, unlabored, Respiratory pattern is regular, symmetrical. EENT: Reports sore throat, lump on right neck. 13:00 Reassessment: Patient appears in no apparent distress at this time. Patient and/or hb family updated on plan of care and expected duration. Pain level reassessed. Patient is alert, oriented x 3, equal unlabored respirations, skin warm/dry/pink. Vital Signs: 10:00 BP 146 / 102; Pulse 107; Resp 16; Temp 98.4; Pulse Ox 100% on R/A; Weight 104.33 kg; hb Height 6 ft. 4 in. ; Pain 2/10; 10:00 Body Mass Index 28.00 (104.33 kg, 193.04 cm) hb 10:00 Pain Scale: Adult hb ED Course: 09:34 Patient arrived in ED. ra3 09:36 Asael Camargo MD is Attending Physician. ec2 10:00 Arm band placed on. hb 10:01 Triage completed. hb 10:38 Strep Sent. hb 10:38 SARS RAPID Sent. hb 10:38 Influenza Screen (a \T\ B) Sent. hb 10:38 COVID swab sent to lab. Flu and/or RSV swab sent to lab. Strep swab sent to lab. hb 10:45 Patient has correct armband on for positive identification. Provided Education on: hb tests, result times. 11:20 Bekah Norton, RN is Primary Nurse. hb 11:47 BMP Sent. hb 11:47 CBC with Diff Sent. hb 11:47 Initial lab(s) drawn, by de, sent to lab. Inserted saline lock: 20 gauge in right hb antecubital area, using aseptic technique. Blood collected. Flushed with 10 mL NS. 12:35 Soft Tissue Neck W/Contr CT In Process Unspecified. EDMS 13:00 Whit Ingram MD is Referral Physician. ec2 13:12 No provider procedures requiring assistance completed. IV discontinued, intact, hb bleeding controlled, No redness/swelling at site. Pressure dressing applied. Administered Medications: 11:46 Drug: NS 0.9% IV 500 ml 500 ml IV at 1 bolus once; to be given as a bolus over 30 hb minutes Volume: 500 ml; Route: IV; Rate: 1 bolus; Site: right antecubital; 12:15 Follow up: Response: No adverse reaction; IV Status: Completed infusion; IV Intake: hb 500ml Medication: 11:21 VIS not applicable for this client. hb Intake: 12:15 IV: 500ml; Total: 500ml. hb Outcome: 13:00 Discharge ordered by . ec2 13:12 Discharged to home ambulatory, hb 13:12 Condition: stable 13:12 Discharge instructions given to patient, Instructed on discharge instructions, follow up and referral plans. medication usage, Demonstrated understanding of instructions, follow-up care, medications, Prescriptions given X 2, 13:14 Patient left the ED. hb Signatures: Dispatcher [employer] EDBekah Benoit RN RN Asael Camargo MD MD ec2 Cherrie Hahn ra3 Corrections: (The following items were deleted from the chart) 10:02 10:00 Acuity: JJ 3 hb hb
[2024-04-25 13:39] VITALS: BP 146/102; TEMP 98.4; O2SAT 100
== END 2024-04-25 13:14 | disposition home or self-care (01) ==
LOC: ER 09:32
DX: I89.8 Other specified noninfective disorders of lymphatic vessels and lymph nodes (principal); Z11.52 Encounter for screening for COVID-19
CPT/HCPCS: 87070; 85025; 80048; 36415; 87081; 87804 ×2; 70491; 99284; 87811; Q9967; J7040

== ENCOUNTER 2024-06-14 12:33 | Emergency (ER) | payer OTHER ==
--- OUTSIDE RECORDS SUMMARY | 2024-06-14 12:35 | XMS REPORT | Continuity of Care Document ---
Author Name Unknown Address [address] [facility] [place] [address] [facility] thconnect Address [address] [facility] [address] [place] [address] Care Team Providers Care Harbormaster Name Role Phone Pcp, Patient Does Not Have A Primary Care Physic janel Campaigns, Generic Provider Attending Clinician Unavailable ROSE RANDALL Attending Clinician Unavailable Rose Harper Attending Clinician [phone] Payers Payer Name Policy Type Policy Number Effective Date Expirati on Date Source Allergies, Adverse Reactions, Alerts Allergy Name Allergy Type Status Severity Reaction(s) Onset Date Inactive Date Treating Clinician Comments Source PENICILL IN DRUG INGREDI Active Rash 12-22 00:00: 00 [facility] Penicill in Propensi ty to adverse reaction s Active Rash 12-22 00:00: 00 [facility] Social History Social Habit Start Date Stop Date Quantity Comments [facility] 1955 00:[facility]:00 1955 00:00:00 [facility] Smoking Status Start Date Stop Date Source Tobacco smoking consumption unknown [facility] Medications Ordered Medication Name Filled Medication Name Start Date Stop Date Current Medication? Ordering Clinician Indication Dosage Frequency Signature (SIG) Comments Components Source lisinopriL 40 mg tablet 12-22 00:00: 00 01-22 04:59 :00 No [id number] 40mg Take 1 tablet by mouth in the morning for 30 days. [facility] amLODIPine 10 mg tablet 12-22 00:00: 00 01-22 04:59 :00 No [id number] 10mg Take 1 tablet by mouth in the morning for 30 days. [facility] metFORMIN 1,000 mg tablet 12-22 00:00: 00 01-22 04:59 :00 No [id number] 1000mg Take 1 tablet by mouth in the morning and 1 tablet in the evening. Do all this for 30 days. [facility] Vital Signs Vital Name Observation Time Observation Value Comments Vicente cole Systolic blood pressure 2023-12-23 18:30:00 148 mm[Hg] [facility] Diastolic blood pressure 2023-12-23 18:30:00 97 mm[Hg] [facility] Heart rate 2023-12-23 18:30:00 79 /min [facility] Respiratory rate 2023-12-23 18:30:00 26 /min [facility] Oxygen saturation in Arterial blood by Pulse oximetry 2023-12-23 18:30:00 100 /min [facility] Body temperature 2023-12-23 17:30:00 37 [facility] Body height 2023-12-23 17:30:00 193 cm [facility] Body weight 2023-12-23 17:30:00 104.327 kg [facility] BMI 2023-12-23 17:30:00 28.00 kg/m2 [facility] Encounters Start Date/Time End Date/Time Encounter Type Admission Type Attending Clinicians Care Facility Care Department Encounter ID Source 2023-12-31 00:00:00 2023-12-31 12:00:01 Letter (Out) Campaigns, Generic Provider [facility] [id number] [facility] 2023-12-23 12:37:00 2023-12-23 13:44:00 Emergency X ROSE RANDALL [facility] ERT [id number] [facility] 2023-12-23 12:37:00 2023-12-23 13:44:00 Emergency Rose Randall [facility] [id number] [facility]
--- NOTE | 2024-06-14 13:16 | ER ---
Nurse's Notes [facility] Name: Aman Gomes Age: 68 yrs Sex: Male : 1955 Arrival Date: 06/14/2024 Time: 12:33 Bed IW3 Private MD: Diagnosis: Encounter for medication refill Presentation: 06/14 12:55 Chief complaint: Patient states: Here for medication refill. Pt states that he needs cm10 his Metformin, Lisinopril and Amlodipine refilled. No other complaints. Pt states that he ran out of medication today. Coronavirus screen: Client denies travel out of the [place] in the last 14 days. Ebola Screen: Patient denies travel to an Ebola-affected area in the 21 days before illness onset. Initial Sepsis Screen: Does the patient meet any 2 criteria? No. Patient's initial sepsis screen is negative. Does the patient have a suspected source of infection? No. Patient's initial sepsis screen is negative. Risk Assessment: Do you want to hurt yourself or someone else? Patient reports no desire to harm self or others. Onset of symptoms was June 14, 2024. 12:55 Method Of Arrival: Ambulatory cm10 12:55 Acuity: JJ 5 cm10 Triage Assessment: 12:58 General: Appears in no apparent distress. comfortable, Behavior is calm, cooperative. cm10 Pain: Denies pain. Neuro: No deficits noted. Level of Consciousness is awake, alert, obeys commands, Oriented to person, place, time, situation, Appropriate for age. Respiratory: No deficits noted. Airway is patent Respiratory effort is even, unlabored, Respiratory pattern is regular, symmetrical. Derm: No deficits noted. Skin is healthy with good turgor. Musculoskeletal: Range of motion: intact in all extremities. Historical: - Allergies: 12:57 PENICILLINS; cm10 - Home Meds: 12:57 amlodipine 10 mg tablet 1 tab daily [Active]; metformin 1,000 mg oral tablet 1 tab 2 cm10 times per day [Active]; lisinopril 40 mg oral tablet 1 tab daily [Active]; - PMHx: 12:57 Hypercholesterolemia; Hypertensive disorder; cm10 - PSHx: 12:57 hernia repair; cm10 - Immunization history:: Adult Immunizations up to date. - Infectious Disease History:: Denies. - Social history:: Smoking status: unknown. - Family history:: not pertinent. - Hospitalizations: : No recent hospitalization is reported. Screenin:59 [facility] ED Fall Risk Assessment (Adult) History of falling in the last 3 months, cm10 including since admission No falls in past 3 months (0 pts) Confusion or Disorientation No (0 pts) Intoxicated or Sedated No (0 pts) Impaired Gait No (0 pts) Mobility Assist Device Used No (0 pt) Altered Elimination No (0 pt) Score/Fall Risk Level 0 - 2 = Low Risk Oriented to surroundings, Maintained a safe environment, Hourly rounding (assess needs \T\ fall precautionary measures) done. Abuse screen: Denies threats or abuse. Denies injuries from another. Nutritional screening: No deficits noted. Tuberculosis screening: No symptoms or risk factors identified. Assessment: 13:00 General: See triage assessment.. cm10 Vital Signs: 12:55 BP 154 / 95; Pulse 53; Resp 15; Temp 98(TE); Pulse Ox 98% on R/A; Weight 106.59 kg; cm10 Height 6 ft. 4 in. ; Pain 0/10; 12:55 Body Mass Index 28.60 (106.59 kg, 193.04 cm) cm10 12:55 Pain Scale: Adult cm10 ED Course: 12:37 Patient arrived in ED. sj2 12:38 Dakota Sargent MD is Attending Physician. rn 12:57 Triage completed. cm10 12:59 Arm band placed on right wrist. Patient placed in waiting room. cm10 12:59 Patient has correct armband on for positive identification. Provided Education on: ER cm10 process and procedures.. Cardiac monitoring not applicable on this patient. 12:59 No provider procedures requiring assistance completed. Patient did not have IV access cm10 during this emergency room visit. 13:32 Cierra Augustin, RN is Primary Nurse. iw Administered Medications: No medications were administered Medication: 12:59 VIS not applicable for this client. cm10 Outcome: 12:59 Discharged to home ambulatory, cm10 12:59 Condition: good 12:59 Discharge instructions given to patient, Instructed on discharge instructions, follow up and referral plans. medication usage, Demonstrated understanding of instructions, follow-up care, medications, Prescriptions given X 3, 13:15 Discharge ordered by MD. rn 13:32 Patient left the ED. iw Signatures: Cierra Augustin RN RN iw Nieto, Roman, MD MD rn Martinez, Clarissa, RN RN [facility] Mey Cisse Juan M
--- NOTE | 2024-06-14 13:16 | EDPHYS ---
Physician Documentation [facility] Name: Aman Gomes Age: 68 yrs Sex: Male : 1955 Arrival Date: 06/14/2024 Time: 12:33 Bed IW3 Private MD: ED Physician Dakota Sargent HPI: 06/14 13:13 This 68 yrs old Male presents to ER via Ambulatory with complaints of PRESCRIPTION rn REFILL. 13:13 Patient reports ran out of his medication and needs refill. Was able to take his last rn dose this morning. Is here for metformin, lisinopril and amlodipine refills. Otherwise feels okay without any medical complaints. Onset: The symptoms/episode began/occurred this morning. Severity of symptoms: At their worst the symptoms were mild in the emergency department the symptoms are unchanged. The patient has experienced similar episodes in the past. Historical: - Allergies: 12:57 PENICILLINS; cm10 - Home Meds: 12:57 amlodipine 10 mg tablet 1 tab daily [Active]; metformin 1,000 mg oral tablet 1 tab 2 cm10 times per day [Active]; lisinopril 40 mg oral tablet 1 tab daily [Active]; - PMHx: 12:57 Hypercholesterolemia; Hypertensive disorder; cm10 - PSHx: 12:57 hernia repair; cm10 - Immunization history:: Adult Immunizations up to date. - Infectious Disease History:: Denies. - Social history:: Smoking status: unknown. - Family history:: not pertinent. - Hospitalizations: : No recent hospitalization is reported. ROS: 13:13 Constitutional: Negative for fever, chills, and weight loss, Neck: Negative for injury, rn pain, and swelling, Cardiovascular: Negative for chest pain, palpitations, and edema, Respiratory: Negative for shortness of breath, cough, wheezing, and pleuritic chest pain, Abdomen/GI: Negative for abdominal pain, nausea, vomiting, diarrhea, and constipation, Back: Negative for injury and pain, MS/Extremity: Negative for injury and deformity, Skin: Negative for injury, rash, and discoloration, Neuro: Negative for headache, weakness, numbness, tingling, and seizure, Exam: 13:13 Constitutional: This is a well developed, well nourished patient who is awake, alert, rn and in no acute distress. Neuro: Awake and alert, GCS 15 Vital Signs: 12:55 BP 154 / 95; Pulse 53; Resp 15; Temp 98(TE); Pulse Ox 98% on R/A; Weight 106.59 kg; cm10 Height 6 ft. 4 in. ; Pain 0/10; 12:55 Body Mass Index 28.60 (106.59 kg, 193.04 cm) cm10 12:55 Pain Scale: Adult cm10 MDM: 12:38 Medical Screening Exam initiated rn 13:13 Differential Diagnosis Encounter for medication refill. Data reviewed: vital signs, rn nurses notes, and as a result, I will discharge patient. Counseling: I had a detailed discussion with the patient and/or guardian regarding the historical points, exam findings, and any diagnostic results supporting the discharge/admit diagnosis, the need for outpatient follow up, to return to the emergency department if symptoms worsen or persist or if there are any questions or concerns that arise at home. Administered Medications: No medications were administered Disposition Summary: 06/14/24 13:15 Discharge Ordered Notes: Location: Home rn Problem: chronic rn Symptoms: are unchanged rn Condition: Stable rn Diagnosis - Encounter for medication refill rn Followup: rn - With: Private Physician - When: As needed - Reason: Recheck today's complaints, Re-evaluation by your physician Discharge Instructions: - Discharge Summary Sheet rn Forms: - Medication Reconciliation Form rn - Antibiotic wireless internet installer - Prescription Opioid Use rn - Patient Portal Instructions rn - Leadership Thank You Letter rn Prescriptions: - amlodipine 10 mg Oral tablet - take 1 tablet ORAL route daily; 90 tablet; Refills: 0, Product Selection rn Permitted - Lisinopril 20 mg Oral tablet - take 2 tablet ORAL route once daily; 180 tablet; Refills: 0, Product Selection rn Permitted - Metformin 1,000 mg Oral tablet - take 1 tablet ORAL route every 12 hours with morning and evening meals; 180 rn tablet; Refills: 0, Product Selection Permitted Signatures: Dakota Sargent MD MD rn Martinez, Clarissa, RN RN 10
[2024-06-15 16:49] VITALS: BP 154/95; TEMP 98; O2SAT 98
== END 2024-06-14 13:32 | disposition home or self-care (01) ==
LOC: ER 12:33
DX: Z76.0 Encounter for issue of repeat prescription (principal)
CPT/HCPCS: 99283